=== PATIENT | male | born 1980 | race Caucasian/White ===

== ENCOUNTER 2017-12-13 10:07 | Outpatient (CLI) | payer MEDICAID ==
--- NOTE | 2017-12-15 16:01 | RAD ---
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 TECHNIQUE: Video fluoroscopic examination was performed with the speech therapy department. 18 seconds of fluoro time was obtained. Total exposure was 0.376 mGy*m2. FINDINGS: The patient had premature spill seen with thin barium liquids. No episodes of tracheal penetration or aspiration was demonstrated. IMPRESSION: 1. No episodes of tracheal aspiration or penetration demonstrated. 2. Mild episodes of premature spill with thin barium liquids. POS: A[facility]EE
== END 2017-12-13 10:08 | disposition home or self-care (01) ==
PROVIDERS: ATTEND Internal Medicine
DX: I69.191 Dysphagia following nontraumatic intracerebral hemorrhage (principal); R13.12 Dysphagia, oropharyngeal phase; R63.3 Feeding difficulties
CPT/HCPCS: 74230; G8996-GN-CI; G8997-GN-CI; G8998-GN-CI